=== PATIENT | female | born 1950 | race Caucasian/White ===

== ENCOUNTER → 2017-05-27 | Outpatient (CLI) | payer BC ==
[~2017-05-27] MED LIST: NAPR1TAB9 PO
--- NOTE | 2017-05-27 14:35 | MAMMOGRAPHY REPORT ---
BILATERAL DIGITAL SCREENING MAMMOGRAM WITH CAD: 05/27/2017 CLINICAL HISTORY: Routine screening. Patient has no complaints. TECHNIQUE: Current study was also evaluated with a Computer Aided Detection (CAD) system. Bilateral CC and MLO views were obtained. COMPARISON: Comparison is made to exams dated: 05/25/2016 mammogram, 05/21/2015 mammogram, 05/14/2014 mammogram, 05/12/2013 mammogram - [facility], 05/29/2008, and 03/01/2006 mammogram - [facility]. BREAST COMPOSITION: There are scattered areas of fibroglandular density in both breasts. FINDINGS: No suspicious masses, calcifications, or areas of architectural distortion are noted in ei ther breast. There has been no significant interval change compared to prior exams. IMPRESSION: ACR BI-RADS CATEGORY 1: NEGATIVE There is no mammographic evidence of malignancy. A 1 year screening mammogram is recommended. The pa tient will receive written notification of the results. Approximately 10% of breast cancers are not detected with mammography. A negative mammographic report should not delay biopsy if a clinically suggestive mass is present. Rosanna Workman M.D. /:05/27/2017 10:33:52 Water Ski Assembler: Zayra GAONA)(M), [facility] letter sent: Normal 1/2 BI-RADS Code: ACR BI-RADS Category 1: Negative
== END | disposition home or self-care (01) ==
LOC: C.MAMM 10:06
PROVIDERS: ATTEND Nurse Practitioner
DX: Z12.31 Encounter for screening mammogram for malignant neoplasm of breast (principal)

== ENCOUNTER 2024-01-19 21:28 | Inpatient (IN) ==
--- NOTE | 2024-01-19 22:21 | Emergency Department Note ---
Impression & Plan Generalized weakness, Elevated brain natriuretic peptide (BNP) level, Elevated troponin, Dysphagia ED Provider Note NAME: NICA HICKMANOOF AGE: 73 SEX: F : 1950 ARRIVES VIA: Walk-In INFORMANT: Patient, daughter ED PROVIDER(S): Frandy Leiva MD CHIEF COMPLAINT: Weakness, outpatient referral for admission, difficulty swallowing MEDICAL DECISION MAKING: Patient patient presents due to concern for weakness. IV was established and blood work was obtained.Patient currently denies any abdominal pains. Patient has a normal white count hemoglobin 9.8 with a normal platelet count. The patient's kidney function is unremarkable the prerenal azotemia noted. Patient does have slightly elevated troponin at 16.3 with a BNP of 188. Lung sounds are grossly unremarkable. I did speak with the on-call hospital service Dr. Shepherd and the patient was admitted to the medicine service. Discussion w/ other healthcare providers: Dr. Odonnell inpatient medicine service Prior /Outside records reviewed: None Differential diagnosis: Infection, dehydration, metabolic abnormality, hypo/hyperglycemia, electrolyte imbalance, anemia, UTI, pneumonia, thyroid dysfunction among others were considered. Diagnostics, as interpreted by me: ECG: Sinus bradycardia, rate 56, normal intervals, normal QRS, normal axis QT appears grossly normal although machine read is very low. Cardiac monitoring: An order was placed for continuous cardiac monitoring. The monitor shows a rate of 62 with sinus rhythm. Patient was placed on pulse oximetry Medical decision rules: None Imaging studies: I informally interpreted the patient's chest x-ray does not show evidence of pneumonia or pneumothorax with formal report to follow. HPI: Patient presents due to concern for increasing weakness and fatigue and is accompanied by her daughter. The patient was reportedly seen in the outpatient setting at [facility] was referred here for admission. Patient had been seen earlier in the week but wanted to go home at that time. Patient denies any chest pains or shortness of breath. No falls or trauma. The patient does have significant lower extremity lymphedema. Patient reportedly is lost about 70 pounds in the last 6 months. The patient was recently diagnosed with ulcerative colitis. The patient has not been able to take her mesalamine and that she has had increasingly a difficult time swallowing. The patient reportedly did have a swallow study completed which showed slow swallowing but no obstruction. They report that she did have an EGD and did not require dilatation at that time. PAST MEDICAL HISTORY: See Below PAST SURGICAL HISTORY: See Below SOCIAL HISTORY: See Below HOME MEDICATIONS: See Below ALLERGIES: See Below VITALS: See Below PHYSICAL EXAMINATION: GENERAL: NAD, non-toxic. EYE EXAM: Normal conjunctiva. PERRL, no anisocoria and EOM's grossly intact w/o pain. OROPHARYNX: Moist mucus membranes, grossly normal dentition. NECK: Trachea midline, no stridor. LUNGS: Clear to auscultation. Normal chest wall mechanics. HEART: NSR, no MRG. ABDOMEN: Abdomen soft, non-tender, no masses, no rebound or guarding. BACK: No CVA TTP. SKIN: No rashes and no bruising. UPPER EXTREMITIES: Upper extremities are grossly normal. LOWER EXTREMITIES: Bilateral lower extremity edema without pitting edema. NEURO EXAM: A&O x3, cranial nerves II-XII grossly intact, normal speech, moves all 4 extremities. Past Med/Surg History Problem List (Updated 01/22/24 @ 11:09 by Frandy Leiva MD) Generalized weakness (Acute) Cervical spondylosis Hypokalemia Dysphagia (Acute) Cellulitis of right lower extremity from knee to ankle Bilateral lower extremity edema Elevated troponin (Acute) Elevated brain natriuretic peptide (BNP) level (Acute) Lightheadedness (Acute) Low serum albumin (Acute) Renal insufficiency (Acute) Ulcerative colitis, chronic (Acute) Left knee DJD (Acute) Medical History No pertinent past medical history Surgical History H/O spinal fusion Social History Smoking Status: Never smoker Hx Alcohol Use: No Hx Substance Use: No Preferred Language: Kazakh Communication Ability: Effective Cooler Worker Required: No Beliefs That Will Affect Care: None Current Living Situation: Alone Feels Safe at Home: Yes Assistive Devices: Glasses Allergies Allergies Allergy/AdvReac Type Severity Reaction Status Date / Time amoxicillin AdvReac Intermediate BILATERAL Verified 01/17/24 21:53 LEG SWELLING & ITCHINESS codeine AdvReac Intermediate chest pain Verified 01/17/24 21:53 Home Meds Home Medications Medication Instructions Recorded Confirmed prednisone 10 mg tablet 40 mg PO DAILY 01/17/24 01/19/24 Results & Data (ED) Vital Signs Vital Signs - 24 hr 01/19/24 21:32 01/19/24 21:58 01/19/24 22:09 Temperature 36.6 C Temperature Source Temporal Artery Scan Pulse Rate 66 57 L Respiratory Rate 18 Blood Pressure 126/83 Blood Pressure Mean 97 Pulse Oximetry 96 98 Oxygen Delivery Method Room Air Room Air Sepsis Recent Fever Within 48 Hours No Sepsis New/Unexplained Change in Mental Status N/A Sepsis Action Taken by Nursing No Action Required Home Medications Current Medication List: was personally reviewed by me Laboratory Data Attestation: I reviewed the patient's lab results. 01/22/24 05:45 01/22/24 05:45 Lab Results 01/19/24 Range/Units 22:05 WBC 9.76 (4.8-10.8) K/ul RBC 3.44 L (4.20-5.40) M/uL Hgb 9.8 L (12.0-16.0) g/dl Hct 29.4 L (37.0-47.0) % MCV 85.5 (80.0-100.0) fL MCH 28.5 (25.0-34.0) pg MCHC 33.3 (32.0-36.0) g/dL RDW Std Deviation 48.0 H (36.4-46.3) fL RDW Coeff of Fer 15.9 H (11.5-14.5) % Plt Count 302 (130-400) K/uL MPV 9.1 L (9.4-12.4) fL Immature Gran % (Auto) 0.3 % Neut % (Auto) 85.6 % Lymph % (Auto) 9.6 % [place] % (Auto) 4.4 % Eos % (Auto) 0.0 % Baso % (Auto) 0.1 % Neut # (Auto) 8.35 H (1.40-6.50) K/uL Lymph # (Auto) 0.94 L (1.20-3.40) K/uL [place] # (Auto) 0.43 (0.11-0.59) K/uL Eos # (Auto) 0.00 (0.00-0.50) K/uL Baso # (Auto) 0.01 (0.00-0.20) K/uL Immature Gran # (Auto) 0.03 (0.01-0.20) K/uL Sodium 138 (136-145) mmol/L Potassium 3.3 L (3.5-5.1) mmol/L Chloride 103 (98-107) mmol/L Carbon Dioxide 28 (21-32) mmol/L Anion Gap 7 (3-11) BUN 41 H (6-23) mg/dl Creatinine 1.18 (0.6-1.2) mg/dl Est Cr Clr Drug Dosing 44.5 ml/min Est GFR ( Amer) 52.6 ml/min Est GFR (Non-Af Amer) 45.4 ml/min BUN/Creatinine Ratio 34.7 H (10-20) Glucose 129 H (70-99(Fasting)) mg/dl Calcium 9.5 (8.6-10.3) mg/dl Magnesium 2.1 (1.7-2.4) mg/dl Total Bilirubin 0.6 (0.2-1.0) mg/dl AST 14 (13-39) U/L ALT 11 (7-52) U/L Alkaline Phosphatase 51 (34-104) U/L Troponin I High Sens 16.3 H (0-14) pg/ml B-Natriuretic Peptide 188 H (0-100) pg/ml Total Protein 6.2 (6.0-8.3) gm/dl Albumin 3.1 L (3.4-5.0) gm/dl Globulin 3.1 (2.5-4.0) gm/dl Albumin/Globulin Ratio 1.0 (0.9-2) TSH 1.272 (0.300-4.500) uIu/ml Administered Medications Enoxaparin Sodium (Enoxaparin Inj 40 Mg/0.4 Ml Syr) 40 mg SQ QAM [facility] Stop: 02/20/24 08:59 Last Admin: 01/22/24 09:20 Dose: 40 mg Documented By: АНДРЕЙ Admin: 01/21/24 09:04 Dose: 40 mg Documented By: АНДРЕЙ Pantoprazole Sodium 40 mg/ (Syringe) 10 mls @ 5 mls/min IV DAILY@1100 [facility] Stop: 02/19/24 10:59 Last Admin: 01/21/24 11:19 Dose: 5 mls/min Documented By: АНДРЕЙ Admin: 01/20/24 10:51 Dose: 5 mls/min Documented By: ML Methylprednisolone 40 mg/ (Syringe) 0.64 mls @ 1.5 mls/min IV DAILY SUBHA Stop: 02/20/24 08:59 Last Admin: 01/22/24 09:20 Dose: 1.5 mls/min Documented By: АНДРЕЙ Admin: 01/21/24 09:06 Dose: 1.5 mls/min Documented By: АНДРЕЙ Lactase (Lactase 3000 Unit Tab) 3,000 units PO QIDM PRN PRN Reason: [email or web address] Stop: 02/20/24 15:34 Last Admin: 01/21/24 18:00 Dose: 3,000 units Documented By: АНДРЕЙ Discontinued Medications Potassium Chloride/Sodium Chloride (Normal Saline W/20 Meq Kcl) 20 meq in 1,000 mls @ 80 mls/hr IV .[id number] SUBHA; Protocol Stop: 01/21/24 04:38 Last Infusion: 01/21/24 01:00 Dose: Infused Documented By: Admin: 01/20/24 13:53 Dose: 100 mls/hr Documented By: LUIS ENRIQUE Infusion: 01/20/24 13:36 Dose: Infused Documented By: Admin: 01/20/24 02:48 Dose: 100 mls/hr Documented By: HB Albumin Human (Albumin 25%) 25 gm in 100 mls @ 50 mls/hr IV Q2H SUBHA Stop: 01/20/24 05:29 Last Infusion: 01/20/24 06:04 Dose: Infused Documented By: Admin: 01/20/24 03:31 Dose: 50 mls/hr Documented By: Infusion: 01/20/24 03:31 Dose: Infused Documented By: Admin: 01/20/24 01:53 Dose: 50 mls/hr Documented By: HB Cefepime HCl 2,000 mg/ Syringe 20 mls @ 5 mls/min IV Q12H SUBHA; Protocol Stop: 01/30/24 01:59 Last Admin: 01/20/24 13:53 Dose: 5 mls/min Documented By: LUIS ENRIQUE Admin: 01/20/24 02:23 Dose: 5 mls/min Documented By: HB Metronidazole (Flagyl) 500 mg in 100 mls @ 100 mls/hr IV Q8H SUBHA; Protocol Stop: 01/30/24 01:59 Last Infusion: 01/20/24 11:55 Dose: Infused Documented By: Admin: 01/20/24 10:54 Dose: 100 mls/hr Documented By: Infusion: 01/20/24 04:08 Dose: Infused Documented By: Admin: 01/20/24 02:49 Dose: 100 mls/hr Documented By: HB Daptomycin 275 mg/ Syringe 5.5 mls @ 2.75 mls/min IV Q24H SUBHA; Protocol Stop: 01/27/24 02:59 Last Admin: 01/20/24 02:23 Dose: 2.75 mls/min Documented By: HB Pantoprazole Sodium 40 mg/ (Syringe) 10 mls @ 5 mls/min IV NOW ONE Stop: 01/20/24 01:46 Last Admin: 01/20/24 02:22 Dose: 5 mls/min Documented By: HB Methylprednisolone 40 mg/ (Syringe) 0.64 mls @ 1.5 mls/min IV Q12H SUBHA Stop: 02/19/24 01:59 Last Admin: 01/20/24 13:53 Dose: 1.5 mls/min Documented By: LUIS ENRIQUE Admin: 01/20/24 02:23 Dose: 1.5 mls/min Documented By: HB Potassium Phosphate 15 mmol/ (Sodium Chloride) 255 mls @ 88 mls/hr IV ONE ONE Stop: 01/20/24 11:08 Last Infusion: 01/20/24 12:16 Dose: Infused Documented By: Admin: 01/20/24 09:09 Dose: 88 mls/hr Documented By: ML Potassium Phosphate 15 mmol/ (Sodium Chloride) 255 mls @ 88 mls/hr IV ONE ONE Stop: 01/21/24 11:23 Last Infusion: 01/21/24 12:58 Dose: Infused Documented By: АНДРЕЙ Admin: 01/21/24 09:04 Dose: 88 mls/hr Documented By: АНДРЕЙ Imaging Data Radiologist's Impression: Chest X-Ray 01/19/24 22:09 XR chest 1V portable HISTORY: weakness COMPARISON: Chest CTA 01/18/2024. FINDINGS: Emphysema. No pneumothorax. The lungs are clear. No evidence for pulmonary edema. The heart is normal in size. No acute fractures. Bilateral cervical ribs are suggested. IMPRESSION: Emphysema. Otherwise, no acute process within the chest. ACT 112: Negative or not required by law. Electronically signed by: William Zelaya M.D. 01/20/2024 7:26 AM Discharge Plan Visit Data Chief Complaint: Referred by Doctor Stated Complaint: LETHARGIC, FATIGUE ED Provider: Frandy Leiva Discharge Problem: Generalized weakness, Elevated brain natriuretic peptide (BNP) level, Elevated troponin, Dysphagia Patient Disposition: Admitted As Inpatient Discharge Instructions Interventions: ED Discharge Assessment Last Done: 01/20/24 07:26 Discharge Problem: Dysphagia Qualifiers: Dysphagia type: unspecified Qualified Code(s): R13.10 - Dysphagia, unspecified
[2024-01-19 22:31] LABS: Basophils # (auto) 0.01 K/uL (0.00-0.20); Basophils % (auto) 0.1 %; Hematocrit (blood only) 29.4 % (37.0-47.0); Hemoglobin 9.8 g/dl (12.0-16.0); Immature Granulocytes # (auto) 0.03 K/uL (0.01-0.20); Immature Granulocytes % (auto) 0.3 %; Lymphocytes # (auto) 0.94 K/uL (1.20-3.40); Lymphocytes % (auto) 9.6 %; Mean Corpuscular Hemoglobin 28.5 pg (25.0-34.0); Mean Corpuscular Hgb Conc 33.3 g/dL (32.0-36.0); Mean Corpuscular Volume 85.5 fL (80.0-100.0); Mean Platelet Volume 9.1 fL (9.4-12.4); Monocytes # (auto) 0.43 K/uL (0.11-0.59); Monocytes % (auto) 4.4 %; Neutrophils # (auto) 8.35 K/uL (1.40-6.50); Neutrophils % (auto) 85.6 %; Platelet Count 302 K/uL (130-400); RDW Coefficient of Variation 15.9 % (11.5-14.5); Red Blood Count 3.44 M/uL (4.20-5.40); White Blood Count 9.76 K/ul (4.8-10.8)
[2024-01-19 22:46] LABS: Albumin Level 3.1 gm/dl (3.4-5.0); BUN Creatinine Ratio 34.7 (10-20); Bilirubin,Total 0.6 mg/dl (0.2-1.0); Calcium 9.5 mg/dl (8.6-10.3); Creatinine Clr Calc Pharmacy 44.5 ml/min; Est GFR (African American) 52.6 ml/min; Est GFR (Non-African American) 45.4 ml/min; Globulin 3.1 gm/dl (2.5-4.0); Magnesium 2.1 mg/dl (1.7-2.4); Potassium 3.3 mmol/L (3.5-5.1); Total Protein 6.2 gm/dl (6.0-8.3)
[2024-01-19 23:01] LABS: Thyroid Stimulating Hormone 1.272 uIu/ml (0.300-4.500)
[2024-01-20] MEDS ORDERED: ONDANSETRON INJ 2 MG/ML 2 ML VIAL IV PRN (01:29)
[2024-01-20] MEDS ORDERED: methylPREDNISolone 10 mg/mL (For Ped Dose < 7mg) IV SCH (01:30)
--- NOTE | 2024-01-20 01:34 | History & Physical Report ---
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 EGD biopsies on 01/06/2024 were negative Hold prednisone 40 mg daily, which was to be tapered after her fourth day of dose today, Solu-Medrol 40 mg IV every 12 hours Colon Biopsies on 01/05 also suggest the possibility of infection versus medication related versus idiopathic inflammatory bowel disease Cover with antibiotics to address GI and skin issues Pantoprazole 40 mg IV daily Zofran 4 mg IV every 6 hours as needed Daptomycin 275 mg IV daily, Flagyl 500 mg IV every 8 hours, cefepime 2 g IV every 12 hours Bilateral lower extremity edema/right lower extremity cellulitis- Antibiotics as above Differential causes including but not limited to heart failure versus venous insufficiency versus lymphedema or combination Hold on diuretics for now due to recent kidney injury Albumin 3.1, will be given albumin 50 g IV Elevated troponin/elevated BNP- Laboratories from 01/17 with troponin of 14.7 and BNP 256 Troponin this evening 16.3 with BNP pending The patient will be admitted to telemetry for serial cardiac enzymes, serial EKG's, cardiac rhythm monitoring and a 2-D echocardiogram with Dopplers. EKG without acute findings, showing sinus bradycardia 56 with nonspecific IVCD Dysphagia- Patient unable to swallow pills as feels like things are getting stuck Outpatient GI was recommending swallowing study which will be ordered with speech therapy Pantoprazole 40 mg IV daily Renal insufficiency/hypokalemia- Creatinine tonight goes 1.37, with free improvement to 1.18 Potassium 3.3. Magnesium 2.1 NSS + KCl 20 mEq at 100 mL/h x 2 L Follow labs serially History of Present Illness Chief Complaint: The patient had initially presented to the emergency department on 01/17/2024 for symptoms of ongoing generalized weakness, poor appetite, lightheadedness over the past several days. She had undergone an EGD and colonoscopy on 01/06/2024, with the ED results being normal, however, the colonoscopy biopsy results were suggestive of ulcerative colitis. She had had a 40 pound weight loss over the previous year due to overall decreased oral intake as noted. She is presently on the fourth day of a prednisone 40 mg dose, which was planned to be tapered over the next few weeks. After having gone to her PCP earlier in the day today, it was noted that she had worsening lower extremity edema with weeping bilaterally, some erythema of right lower extremity, and had some borderline concerning laboratories at the previous ED visit, that need to be followed up on. Primary Care Provider: Prachi Cleveland DO The patient is a 73-year-old female with a past medical history including ulcerative colitis, left knee DJD and renal insufficiency, with elevated troponin and BNP, worsening lower extremity edema and weeping, with persistent symptoms of abdominal discomfort associated with chronic ulcerative colitis. She presents to the emergency department for reassessment this evening. She did receive Solu-Medrol 125 mg IV from the ED 2 nights ago, and reports some improvement in symptoms, in conjunction with the prednisone 40 mg orally she is taking at this time. However, she continues to have persistent and worsening lower extremity edema and weeping Allergies Allergy/AdvReac Type Severity Reaction Status Date / Time amoxicillin AdvReac Intermediate BILATERAL Verified 01/17/24 21:53 LEG SWELLING & ITCHINESS codeine AdvReac Intermediate chest pain Verified 01/17/24 21:53 Home Medications Medication Instructions Recorded Confirmed Type prednisone 10 mg tablet 40 mg PO DAILY 01/17/24 01/19/24 History Past Med/Surg History Problem List (Updated 01/20/24 @ 03:52 by Hernesto Huerta MD) Hypokalemia Dysphagia Cellulitis of right lower extremity from knee to ankle Bilateral lower extremity edema Elevated troponin Elevated brain natriuretic peptide (BNP) level (Acute) Lightheadedness (Acute) Low serum albumin (Acute) Renal insufficiency (Acute) Ulcerative colitis, chronic (Acute) Left knee DJD (Acute) Medical History No pertinent past medical history Surgical History H/O spinal fusion Social History Smoking Status: Never smoker Hx Alcohol Use: No Hx Substance Use: No Preferred Language: Mongolian Communication Ability: Effective Tapper Hand Required: No Beliefs That Will Affect Care: None Current Living Situation: Alone Feels Safe at Home: Yes Assistive Devices: Glasses Review of Systems Review of Systems: The patient denies chest pain, palpitations, shortness of breath, dyspnea on exertion, cough, sore throat, fevers, chills, sweats, nausea, vomiting, blood in urine or stool, dysuria, urinary frequency or urgency, lightheadedness, dizziness, headache, memory loss, loss of consciousness, imbalance, focal weakness, numbness or tingling in arms, generalized arthralgias or myalgias, back or neck pain, or night sweats. The review of systems is otherwise negative other than for that already noted above, and at least 10 systems have been reviewed. Physical Exam Physical Exam: The patient is awake, alert and oriented 3, well developed and well nourished, normocephalic and atraumatic, lying in bed and in no acute distress. HEENT--PERRL, EOMI, mucous membranes and oropharynx normal Neck--supple. No JVD. No bruits. Thyroid normal, trachea midline, no adenopathy. Heart--normal S1 and S2. No murmurs, rubs or gallops. Lungs--clear bilaterally, no respiratory distress, no accessory muscle use. Abdomen--normal bowel sounds and soft. Nontender. Nondistended Extremities--2+ bilateral pretibial pitting edema, some vacuolization, mild erythema anterior tibial surface and nodule of right leg Dermatologic--normal skin turgor, normal color, no abnormal lymph nodes, no rash. Neurologic--cranial nerves II through XII grossly intact. Rheumatologic--normal range of motion. Psychiatric--normal affect. Results & Data Results & Data Vital Signs (Past 12 Hours) Vital Signs Temp Pulse Resp BP Pulse Ox O2 Del Method 01/19/24 22:09 98 Room Air 01/19/24 21:58 57 L 01/19/24 21:32 36.6 C 66 18 126/83 96 Room Air Laboratory Results Laboratory Results WBC 9.76 K/ul (4.8-10.8) 01/19/24 22:05 RBC 3.44 M/uL (4.20-5.40) L 01/19/24 22:05 Hgb 9.8 g/dl (12.0-16.0) L 01/19/24 22:05 Hct 29.4 % (37.0-47.0) L 01/19/24 22:05 MCV 85.5 fL (80.0-100.0) 01/19/24 22:05 MCH 28.5 pg (25.0-34.0) 01/19/24 22:05 MCHC 33.3 g/dL (32.0-36.0) 01/19/24 22:05 RDW Std Deviation 48.0 fL (36.4-46.3) H 01/19/24 22:05 RDW Coeff of Fer 15.9 % (11.5-14.5) H 01/19/24 22:05 Plt Count 302 K/uL (130-400) 01/19/24 22:05 MPV 9.1 fL (9.4-12.4) L 01/19/24 22:05 Immature Gran % (Auto) 0.3 % 01/19/24 22:05 Neut % (Auto) 85.6 % 01/19/24 22:05 Lymph % (Auto) 9.6 % 01/19/24 22:05 [place] % (Auto) 4.4 % 01/19/24 22:05 Eos % (Auto) 0.0 % 01/19/24 22:05 Baso % (Auto) 0.1 % 01/19/24 22:05 Neut # (Auto) 8.35 K/uL (1.40-6.50) H 01/19/24 22:05 Lymph # (Auto) 0.94 K/uL (1.20-3.40) L 01/19/24 22:05 [place] # (Auto) 0.43 K/uL (0.11-0.59) 01/19/24 22:05 Eos # (Auto) 0.00 K/uL (0.00-0.50) 01/19/24 22:05 Baso # (Auto) 0.01 K/uL (0.00-0.20) 01/19/24 22:05 Immature Gran # (Auto) 0.03 K/uL (0.01-0.20) 01/19/24 22:05 Sodium 138 mmol/L (136-145) 01/19/24 22:05 Potassium 3.3 mmol/L (3.5-5.1) L 01/19/24 22:05 Chloride 103 mmol/L (98-107) 01/19/24 22:05 Carbon Dioxide 28 mmol/L (21-32) 01/19/24 22:05 Anion Gap 7 (3-11) 01/19/24 22:05 BUN 41 mg/dl (6-23) H 01/19/24 22:05 Creatinine 1.18 mg/dl (0.6-1.2) 01/19/24 22:05 Est Cr Clr Drug Dosing 44.5 ml/min 01/19/24 22:05 Est GFR ( Amer) 52.6 ml/min 01/19/24 22:05 Est GFR (Non-Af Amer) 45.4 ml/min 01/19/24 22:05 BUN/Creatinine Ratio 34.7 (10-20) H 01/19/24 22:05 Glucose 129 mg/dl (70-99(Fasting)) H 01/19/24 22:05 Calcium 9.5 mg/dl (8.6-10.3) 01/19/24 22:05 Magnesium 2.1 mg/dl (1.7-2.4) 01/19/24 22:05 Total Bilirubin 0.6 mg/dl (0.2-1.0) 01/19/24 22:05 AST 14 U/L (13-39) 01/19/24 22:05 ALT 11 U/L (7-52) 01/19/24 22:05 Alkaline Phosphatase 51 U/L (34-104) 01/19/24 22:05 Troponin I High Sens 16.3 pg/ml (0-14) H 01/19/24 22:05 Total Protein 6.2 gm/dl (6.0-8.3) 01/19/24 22:05 Albumin 3.1 gm/dl (3.4-5.0) L 01/19/24 22:05 Globulin 3.1 gm/dl (2.5-4.0) 01/19/24 22:05 Albumin/Globulin Ratio 1.0 (0.9-2) 01/19/24 22:05 TSH 1.272 uIu/ml (0.300-4.500) 01/19/24 22:05 Code Status & VTE Plan Code Status Full code VTE Prophylaxis Plan VTE Prophylaxis will be ordered: Yes PG Care Time/CCT Total # of Minutes Spent Total Time Spent with Patient: Total time spent is greater than 50% in coordination of care (as documented) at patient's floor/unit and/or counseling patient: Coding Level of Care Code 52408 INT INP/OBS CARE 3/75MIN Diagnoses Elevated brain natriuretic peptide (BNP) level R79.89 Elevated troponin R79.89 Low serum albumin R77.0 Ulcerative colitis, chronic K51.019 Digestive disease complication type: unspecified complication Ulcerative colitis location: ulcerative pancolitis Renal insufficiency N28.9 Bilateral lower extremity edema R60.0 Cellulitis of right lower extremity from knee to ankle L03.115 Dysphagia R13.10 Hypokalemia E87.6 (4) Ulcerative colitis, chronic Digestive disease complication type: unspecified complication Ulcerative colitis location: ulcerative pancolitis Qualified Code(s): K51.019 - Ulcerative (chronic) pancolitis with unspecified complications
[2024-01-20] MEDS: ALBUMIN 25% 25 GM/100 ML VIAL IV SCH (01:53)
[2024-01-20 02:20] LABS: Troponin I High Sensitivity 16.3 pg/ml (0-14)
[2024-01-20] MEDS: PANTOprazole 40 MG in SYRINGE 0 ML IV ONE (02:22)
[2024-01-20] MEDS: methylPREDNISolone 40 MG in SYRINGE 0 ML IV SCH (02:23)
[2024-01-20] MEDS: DAPTOmycin 275 MG in SYRINGE 0 ML IV SCH (02:23)
[2024-01-20] MEDS: CEFEPIME 2,000 MG in SYRINGE 0 ML IV SCH (02:23)
[2024-01-20] MEDS: NSS + 20MEQ KCL 20 MEQ/1,000 ML BAG IV SCH (02:48)
[2024-01-20] MEDS: metroNIDAZOLE 500 MG/100 ML BAG IV SCH (02:49)
[2024-01-20 04:09] LABS: Appearance Urine Clear (Clear); Bacteria Urine Automated None Seen (None Seen); Bilirubin Urine Negative (Negative); Blood Urine Negative (Negative); Color Urine Yellow; Glucose Urine UA Trace (Negative); Hyaline Casts Urine Present /lpf (None Presnt); Ketones Urine 1+ (Negative); Leukocyte Esterase Urine Negative (Negative); Nitrite Urine Negative (Negative); Protein Urine 1+ (Negative); RBC Urine Automated 0-2 /hpf (0-2); Specific Gravity Urine 1.037 (1.000-1.030); Urobilinogen Urine Negative (Negative); WBC Urine Automated 0-5 /hpf (0-5)
[2024-01-20 04:56] LABS: Basophils # (auto) 0.01 K/uL (0.00-0.20); Basophils % (auto) 0.1 %; Hematocrit (blood only) 26.8 % (37.0-47.0); Hemoglobin 8.6 g/dl (12.0-16.0); Immature Granulocytes # (auto) 0.04 K/uL (0.01-0.20); Immature Granulocytes % (auto) 0.5 %; Lymphocytes # (auto) 0.78 K/uL (1.20-3.40); Lymphocytes % (auto) 10.2 %; Mean Corpuscular Hemoglobin 27.9 pg (25.0-34.0); Mean Corpuscular Hgb Conc 32.1 g/dL (32.0-36.0); Mean Platelet Volume 8.8 fL (9.4-12.4); Monocytes # (auto) 0.37 K/uL (0.11-0.59); Monocytes % (auto) 4.9 %; Neutrophils # (auto) 6.42 K/uL (1.40-6.50); Neutrophils % (auto) 84.3 %; Platelet Count 213 K/uL (130-400); RDW Coefficient of Variation 15.8 % (11.5-14.5); RDW Standard Deviation 49.4 fL (36.4-46.3); Red Blood Count 3.08 M/uL (4.20-5.40); White Blood Count 7.62 K/ul (4.8-10.8)
[2024-01-20 05:09] LABS: Albumin Level 3.2 gm/dl (3.4-5.0); Creatinine Clr Calc Pharmacy 52.5 ml/min; Est GFR (African American) 64.3 ml/min; Est GFR (Non-African American) 55.5 ml/min; Phosphorus 2.1 mg/dl (2.5-4.9); Potassium 3.4 mmol/L (3.5-5.1)
[2024-01-20 05:15] LABS: Troponin I High Sensitivity 16.4 pg/ml (0-14)
--- NOTE | 2024-01-20 07:27 | XRay Report ---
XR chest 1V portable HISTORY: weakness COMPARISON: Chest CTA 01/18/2024. FINDINGS: Emphysema. No pneumothorax. The lungs are clear. No evidence for pulmonary edema. The heart is normal in size. No acute fractures. Bilateral cervical ribs are suggested. IMPRESSION: Emphysema. Otherwise, no acute process within the chest. ACT 112: Negative or not required by law. Electronically signed by: William Zelaya M.D. 01/20/2024 7:26 AM
[2024-01-20] MEDS ORDERED: POTASSIUM PHOS 3 MMOL/1 ML INFUSION IV STA (08:01)
[2024-01-20] MEDS: POTASSIUM PHOSPHATE 15 MMOL in SODIUM CHLORIDE 0.9% 250 ML IV ONE (09:09)
[2024-01-20] MEDS: PANTOprazole 40 MG in SYRINGE 0 ML IV SCH (10:51)
--- NOTE | 2024-01-20 14:56 | XCELERA ---
[id number] [id number]
--- NOTE | 2024-01-20 16:36 | Hospitalist Progress Note ---
Date of Service January 20, 2024 Assessment & Plan (1) Elevated brain natriuretic peptide (BNP) level: (2) Elevated troponin: (3) Low serum albumin: (4) Ulcerative colitis, chronic: (5) Renal insufficiency: (6) Bilateral lower extremity edema: (7) Cellulitis of right lower extremity from knee to ankle: (8) Dysphagia: (9) Hypokalemia: Plan Unspecified Colitis: Primarily noted to be active left side and sigmoid colon on CT scan abdomen and pelvis on 01/16 Colon biopsy during colonoscopy from 01/06/2024 with right and left side biopsies suggestive of cryptitis with increased numbers of lymphoplasmacytic cells in the lamina propria History and scope findings do not appear consistent with traditional UC, colon biopsies on 01/05 also suggest the possibility of infection versus medication related versus idiopathic inflammatory bowel disease Decrease Solumedrol to 40mg IV daily. Bilateral lower extremity edema More suggestive of venous stasis vs lymphedema, no fever, no white count, non- tender to palpation - will dc abx Dysphagia- Patient struggles to swallow pills/food as feels like things are getting stuck EGD biopsies on 01/06/2024 were negative Barium swallow/VFSS planned to tomorrow AM - NPO at midnight Pantoprazole 40 mg IV daily Renal insufficiency Creatinine 1.37 on admission, AM Cr 1 NSS + KCl 20 mEq at 80 mL/h x 2.5 L Follow labs serially Diet: Full liquid, NPO at midnight VTE ppx: Lovenox Admission and Anticipated Discharge Date Admission Date: January 20, 2024 Supervising Physician Co-Signing Physician Notes I personally examined the patient and verified all garcia points of history and exam, discussed case, and agree with decision making with Dr Dugan Feels a lot of dysphagia and food sticking in her throat. Also feels a lot of vague abdominal malaise and sometimes has slimy diarrhea. Has had endoscopic workup as an outpatient at [facility].legs also more swollen and heavier, generally getting weaker vitals noted nad heent nc at mmm breathing unlabored no accessory muscles good effort skin no rashes no pallor or icterus. b/l LE edema and diffuse venous stasis changes no erythema no exquisite tenderness b/l LE venous stasis changes - no evidence cellulitis after further review, stop abx, follow weight loss, dysphagia, lower GI malaise and ?UC - on steroids per outpt GI. will need to get more extensive records and/or discuss current working dx/plan/next steps. dysphagia - same; also for barium swallow tomorrow. fiscal agent consult. weakness - from malnutrition (seems to be acute severe protein calorie malnutrition based on weight loss) - PT/OT, fiscal agent consult DVT proph - lovenox Subjective Patient states that she presented to ED at recommendation from her PCP, who noted more pronounced bilateral LE swelling with associated weeping from left leg. Increased LE swelling over the past week, not painful, denies associated fever/chills. Apart from this, patient was seen 2 days prior due to generalized fatigue/weakness in the setting of 70 lb weight loss. Weight loss over past year has been due to dysphagia, patient had recent EGD that was negative. Recent colonoscopy which identified a non-specific colitis, possibly infectious vs medication-related vs idiopathic IBD. Severe diarrhea for a period of time last year, though this was during a bout of diverticulitis. Since, has on and off diarrhea, non-bloody. Denies CP, SOB, abdominal pain. Review of Systems Review of Systems: as per HPI Physical Exam Physical Exam: General: Alert and oriented. No acute distress Cardiac: Regular rate and rhythm, no murmurs appreciated Respiratory: Lungs clear to auscultation bilaterally, No increased work of breathing Abdominal: Soft, non-tender, non-distended. Bowel sounds present. Extremities: Significant bilateral LE pitting edema from the knees down, mild venous stasis changes appreciated on anterior aspect of right owens. Non-tender to palpation, not warm to touch. Results & Data Results & Data Vital Signs (Past 12 Hours) Vital Signs Temp Pulse Pulse Resp BP BP Pulse Ox 01/20/24 14:30 01/20/24 14:02 48 L 01/20/24 14:00 36.7 C 59 L 16 114/78 95 01/20/24 13:00 52 L 18 97 01/20/24 12:53 124/62 01/20/24 12:53 124/62 01/20/24 12:42 40 L 12 01/20/24 12:06 50 L 14 01/20/24 11:15 43 L 13 01/20/24 11:00 121/68 01/20/24 10:57 49 L 14 01/20/24 10:50 120/60 01/20/24 10:50 120/60 01/20/24 10:50 120/60 01/20/24 10:50 47 L 15 120/60 98 01/20/24 10:33 12 01/20/24 10:09 40 L 13 01/20/24 10:00 131/68 01/20/24 10:00 131/68 01/20/24 09:24 51 L 12 01/20/24 09:10 127/64 01/20/24 09:10 127/64 01/20/24 09:10 127/64 01/20/24 09:09 46 L 11 L 01/20/24 09:09 61 19 127/64 97 01/20/24 08:00 42 L 12 01/20/24 07:47 44 L 01/20/24 07:23 47 L 18 131/68 97 01/20/24 07:23 01/20/24 07:22 131/68 01/20/24 07:22 131/68 01/20/24 07:21 44 L 14 01/20/24 07:00 43 L 11 L 01/20/24 06:36 46 L 12 01/20/24 06:00 45 L 14 103/64 Pulse Ox O2 Del Method O2 Del Method 01/20/24 14:30 Room Air 01/20/24 14:02 01/20/24 14:00 Room Air 01/20/24 13:00 01/20/24 12:53 01/20/24 12:53 01/20/24 12:42 01/20/24 12:06 01/20/24 11:15 01/20/24 11:00 01/20/24 10:57 01/20/24 10:50 01/20/24 10:50 01/20/24 10:50 01/20/24 10:50 Room Air 01/20/24 10:33 01/20/24 10:09 01/20/24 10:00 01/20/24 10:00 01/20/24 09:24 01/20/24 09:10 01/20/24 09:10 01/20/24 09:10 01/20/24 09:09 01/20/24 09:09 Room Air 01/20/24 08:00 01/20/24 07:47 01/20/24 07:23 Room Air 01/20/24 07:23 97 Room Air 01/20/24 07:22 01/20/24 07:22 01/20/24 07:21 01/20/24 07:00 01/20/24 06:36 01/20/24 06:00 Resident Activity Tracking Resident Involvement: Resident Care Provided Care Provided: Adult Hospital Medicine (4) Ulcerative colitis, chronic Digestive disease complication type: unspecified complication Ulcerative colitis location: ulcerative pancolitis Qualified Code(s): K51.019 - Ulcerative (chronic) pancolitis with unspecified complications
--- NOTE | 2024-01-20 18:11 | Billing Data ---
Date of Service January 20, 2024 Coding Level of Care Code 76794 SUB INP/OBS CARE MIN
[2024-01-21 06:24] LABS: Hematocrit (blood only) 25.7 % (37.0-47.0); Hemoglobin 8.5 g/dl (12.0-16.0); Immature Granulocytes # (auto) 0.05 K/uL (0.01-0.20); Immature Granulocytes % (auto) 0.5 %; Lymphocytes # (auto) 1.18 K/uL (1.20-3.40); Mean Corpuscular Hemoglobin 28.4 pg (25.0-34.0); Mean Corpuscular Hgb Conc 33.1 g/dL (32.0-36.0); Mean Platelet Volume 9.4 fL (9.4-12.4); Monocytes # (auto) 0.58 K/uL (0.11-0.59); Monocytes % (auto) 5.9 %; Neutrophils % (auto) 81.6 %; Platelet Count 215 K/uL (130-400); RDW Standard Deviation 49.7 fL (36.4-46.3); Red Blood Count 2.99 M/uL (4.20-5.40); White Blood Count 9.81 K/ul (4.8-10.8)
[2024-01-21 06:46] LABS: Albumin Level 2.8 gm/dl (3.4-5.0); BUN Creatinine Ratio 33.3 (10-20); Calcium 8.3 mg/dl (8.6-10.3); Creatinine Clr Calc Pharmacy 67.3 ml/min; Est GFR (African American) 86.8 ml/min; Est GFR (Non-African American) 74.9 ml/min; Magnesium 1.8 mg/dl (1.7-2.4); Phosphorus 2.2 mg/dl (2.5-4.9); Potassium 3.7 mmol/L (3.5-5.1)
--- NOTE | 2024-01-21 06:58 | Hospitalist Progress Note ---
Date of Service January 21, 2024 Assessment & Plan (1) Dysphagia: (2) Elevated brain natriuretic peptide (BNP) level: (3) Elevated troponin: (4) Low serum albumin: (5) Ulcerative colitis, chronic: (6) Renal insufficiency: (7) Bilateral lower extremity edema: (8) Cellulitis of right lower extremity from knee to ankle: (9) Hypokalemia: Plan Unspecified Colitis: Primarily noted to be active left side and sigmoid colon on CT scan abdomen and pelvis on 01/16 Colon biopsy during colonoscopy from 01/06/2024 with right and left side biopsies suggestive of cryptitis with increased numbers of lymphoplasmacytic cells in the lamina propria History and scope findings do not appear consistent with traditional UC, colon biopsies on 01/05 also suggest the possibility of infection versus medication related versus idiopathic inflammatory bowel disease Continue Solumedrol 40mg IV daily. Bilateral lower extremity edema More suggestive of venous stasis vs lymphedema, no fever, no white count elevation, non-tender to palpation Dysphagia, Failure to thrive/Protein calorie malnutrition, Generalized weakness: Patient struggles to swallow pills/food as it feels like things are getting stuck - difficulty has manifested as a 70 lb weight loss EGD biopsies on 01/06/2024 were negative Barium swallow/VFSS significant for cervical spine osteophyte growth noted to impeded swallowing - Speech therapy following, appreciate recs - Ortho spine consulted, Dr. Curiel agreeable to meeting with patient 01/21 Pantoprazole 40 mg IV daily Dietary consult, appreciate recs PT/OT Anemia: Hgb 9.8 at time of admission, AM Hgb 8.5 - acute change likely due to hemodilution Ferritin, B12, folate all WNL Renal insufficiency Creatinine 1.37 on admission, AM Cr 0.78 Follow labs Diet: Full liquid VTE ppx: Lovenox Admission and Anticipated Discharge Date Admission Date: January 20, 2024 Supervising Physician Co-Signing Physician Notes Patient seen and examined, chart reviewed, case discussed with Dr. Dugan and I agree with the assessment and plan as above except as otherwise noted Labs and images reviewed Pooja is a 73-year-old female who presents with dysphagia and was also found to have left-sided colitis suspicious for atypical UC versus infectious/medication related inflammatory bowel disease. She has been having significant challenges with dysphagia for several months despite normal EGD and biopsies last 01/05. Barium swallow/VFSS shows evidence of cervical osteophyte obstruction causing dysphagia and aspiration. Speech to meet with patient for dietary modifications to minimize risk of aspiration patient is aware that this risk cannot be completely eliminated Reviewed potential for surgical intervention versus symptomatic and anticipatory management. As She feels relatively healthy otherwise and has been extremely symptomatic with severe weight loss from this she would like to have a consultation to review surgical options. Case reviewed with orthospine who will see the patient 01/21 and likely follow-up for full surgical evaluation as outpatient. Will continue boost to maximize nutrition. Phosphate repleted. Agree with above. Patient is pleasant and nondistressed at bedside visit. Lungs are clear and she does not have any signs of aspiration pneumonia at time of visit. Subjective No acute overnight events, patient notes having 2 loose bowel movements this morning, denies seeing blood in stool. Poor appetite, did not eat much yesterday. Denies CP, SOB, abdominal pain. Scheduled for barium swallow/VFSS - on review of findings, patient notes that she is at least open to the idea of surgical intervention, would like to meet with ortho spine if possible. Review of Systems Review of Systems: as per HPI Physical Exam Physical Exam: General: Alert and oriented. No acute distress Cardiac: Regular rate and rhythm, no murmurs appreciated Respiratory: Lungs clear to auscultation bilaterally, No increased work of breathing Abdominal: Soft, non-tender, non-distended. Bowel sounds present. Extremities: Significant bilateral LE pitting edema from the knees down, mild venous stasis changes appreciated on anterior aspect of right owens. Non-tender to palpation, not warm to touch. Results & Data Results & Data Vital Signs (Past 12 Hours) Vital Signs Temp Pulse Pulse Resp BP Pulse Ox O2 Del Method 01/21/24 02:30 36.5 C 62 16 131/72 94 Room Air 01/20/24 22:46 36.4 C L 47 L 18 111/63 98 Room Air 01/20/24 22:30 79 01/20/24 22:08 38 L 01/20/24 19:04 36.4 C L 43 L 18 146/74 H 99 Room Air (5) Ulcerative colitis, chronic Digestive disease complication type: unspecified complication Ulcerative colitis location: ulcerative pancolitis Qualified Code(s): K51.019 - Ulcerative (chronic) pancolitis with unspecified complications
[2024-01-21] MEDS ORDERED: POTASSIUM PHOS 3 MMOL/1 ML INFUSION IV STA (07:59)
[2024-01-21] MEDS: POTASSIUM PHOSPHATE 15 MMOL in SODIUM CHLORIDE 0.9% 250 ML IV ONE (09:04)
[2024-01-21] MEDS: ENOXAPARIN INJ 40 MG/0.4 ML SYR SQ SCH (09:04)
[2024-01-21] MEDS: methylPREDNISolone 40 MG in SYRINGE 0 ML IV SCH (09:06)
--- NOTE | 2024-01-21 11:28 | Fluoroscopy Report ---
FL video swallow CLINICAL HISTORY: solid food dysphagia TECHNIQUE: Video fluoroscopy of the pharyngeal region was performed as barium mixtures of varying con sistencies were administered to the patient by the speech pathologist. A formal esophagram was not pe rformed. Comparison: Comparison is made to barium swallow 01/21/2024 FINDINGS: Total fluoroscopy time: 1.55 minutes. Radiation dose: 7.09 mGy. Penetration is seen. Epiglottic inversion is limited by posterior osteophyte. Pooling of barium was n oted in the bilateral piriform sinuses and valleculae. IMPRESSION: Penetration is seen without evidence of aspiration during the medial portion of this exam. Please see the speech pathology report for further details. ACT 112: Negative or not required by law. Electronically signed by: Fidel Vilchis M.D. 01/21/2024 11:26 AM
--- NOTE | 2024-01-21 11:31 | Fluoroscopy Report ---
FL barium swallow CLINICAL HISTORY: globus sensation TECHNIQUE: The patient was observed drinking thick and thin barium under fluoroscopic observation in both the upright and recumbent positions. Total fluoroscopy time: 20 seconds Ka,r: 11.2 mGy COMPARISON: Comparison is made to CTA chest 01/18/2024 FINDINGS: The patient had no problem initiating the swallowing mechanism. Aspiration is seen with cough. Exam w as terminated early. Dysmotility was seen during swallowing. There was no evidence of strictures, filling defects, or outpouchings. Contrast flowed readily from t he esophagus into the stomach. No hiatal hernia is seen. There was no evidence of gastroesophageal re flux. IMPRESSION: Limited exam due to aspiration. Dysmotility is seen. ACT 112: Negative or not required by law. Electronically signed by: Fidel Vilchis M.D. 01/21/2024 11:30 AM
[2024-01-21 12:50] LABS: Ferritin 180.2 ng/ml (8-388)
[2024-01-21 13:04] LABS: Folate (Folic Acid),Ser orPlas 6.01 ng/ml (>5.38)
--- NOTE | 2024-01-21 14:03 | Billing Data ---
Date of Service January 21, 2024 Coding Level of Care Code 26781 INT INP/OBS CARE
[2024-01-21] MEDS: LACTASE 3000 UNIT TAB PO PRN (18:00)
--- NOTE | 2024-01-21 18:44 | Electrocardiogram Report ---
Test Reason : Blood Pressure : / mmHG Vent. Rate : 056 BPM Atrial Rate : 056 BPM P-R Int : 114 ms QRS Dur : 162 ms QT Int : 114 ms P-R-T Axes : 003 061 049 degrees QTc Int : 110 ms Sinus bradycardia Non-specific intra-ventricular conduction delay Minimal voltage criteria for LVH, may be normal variant ( Kevin product ) Abnormal ECG When compared with ECG of 17-JAN-2024 20:08, Sinus rhythm has replaced Ectopic atrial rhythm Confirmed by Abraham Romero ([id number]) on 01/21/2024 6:43:59 PM Referred By: Prachi Cleveland Confirmed By:Abraham Romero
[2024-01-22 06:03] LABS: Basophils # (auto) 0.01 K/uL (0.00-0.20); Basophils % (auto) 0.1 %; Eosinophils # (auto) 0.01 K/uL (0.00-0.50); Eosinophils % (auto) 0.1 %; Hematocrit (blood only) 26.5 % (37.0-47.0); Hemoglobin 8.7 g/dl (12.0-16.0); Immature Granulocytes # (auto) 0.05 K/uL (0.01-0.20); Immature Granulocytes % (auto) 0.6 %; Lymphocytes # (auto) 1.63 K/uL (1.20-3.40); Mean Corpuscular Hemoglobin 28.2 pg (25.0-34.0); Mean Corpuscular Hgb Conc 32.8 g/dL (32.0-36.0); Mean Platelet Volume 9.4 fL (9.4-12.4); Monocytes # (auto) 0.53 K/uL (0.11-0.59); Monocytes % (auto) 5.9 %; Neutrophils # (auto) 6.81 K/uL (1.40-6.50); Neutrophils % (auto) 75.3 %; Platelet Count 185 K/uL (130-400); RDW Coefficient of Variation 16.2 % (11.5-14.5); RDW Standard Deviation 50.2 fL (36.4-46.3); Red Blood Count 3.08 M/uL (4.20-5.40); White Blood Count 9.04 K/ul (4.8-10.8)
[2024-01-22 06:22] LABS: Albumin Level 2.7 gm/dl (3.4-5.0); BUN Creatinine Ratio 26.7 (10-20); Calcium 8.1 mg/dl (8.6-10.3); Creatinine Clr Calc Pharmacy 69.8 ml/min; Est GFR (Non-African American) 78.5 ml/min; Phosphorus 1.7 mg/dl (2.5-4.9); Potassium 3.6 mmol/L (3.5-5.1)
--- NOTE | 2024-01-22 06:52 | Hospitalist Progress Note ---
Date of Service January 22, 2024 Assessment & Plan (1) Dysphagia: (2) Elevated brain natriuretic peptide (BNP) level: (3) Elevated troponin: (4) Low serum albumin: (5) Ulcerative colitis, chronic: (6) Renal insufficiency: (7) Bilateral lower extremity edema: (8) Cellulitis of right lower extremity from knee to ankle: (9) Hypokalemia: Plan 1) Unspecified Colitis: Primarily noted to be active left side and sigmoid colon on CT scan abdomen and pelvis on 01/16 Colon biopsy during colonoscopy from 01/06/2024 with 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 medication related vs. idiopathic inflammatory bowel disease Continue Solumedrol 40mg IV daily. 2) Bilateral lower extremity edema Highly suggestive of venous stasis vs lymphedema, - no fever, no white count elevation, non-tender to palpation 3) Dysphagia, Failure to thrive/Protein calorie malnutrition, Generalized weakness: Patient struggles to swallow pills/food as it feels like things are getting stuck - difficulty has manifested as a 70 lb weight loss EGD biopsies on 01/06/2024 were negative Barium swallow/VFSS significant for cervical spine osteophyte growth noted to impeded swallowing - Speech therapy following, appreciate recs - Ortho spine consulted, Dr. Curiel agreeable to meeting with patient 01/21 Pantoprazole 40 mg IV daily Dietary consult, appreciate recs PT/OT 4) Anemia: Hgb, 8.7 <-- 11.3 (at time of admission) - acute change w/in hospital due to hemodilution vs. bleed - Ferritin, B12, folate all WNL 5) Renal insufficiency Creatinine, 0.75 <-- 1.37 (on admission) Trend BMP's daily in AM Diet: Full liquid VTE ppx: Lovenox Admission and Anticipated Discharge Date Admission Date: January 20, 2024 Subjective No acute overnight events, patient notes having 2 loose bowel movements this morning, denies seeing blood in stool. Poor appetite, did not eat much yesterday, secondary to swallowing problems and food tasting strange. Denies CP, SOB, only mild abdominal pain. Pt noticed weeping wound on left owens this morn ing. Scheduled for barium swallow/VFSS - on review of findings, patient notes that she is at least open to the idea of surgical intervention, would like to meet with ortho spine if possible. Results & Data Results & Data Vital Signs (Past 12 Hours) Vital Signs Temp Pulse Pulse Resp BP Pulse Ox O2 Del Method 01/22/24 05:35 36.5 C 67 15 128/74 98 Room Air 01/22/24 00:00 47 L 01/21/24 23:25 36.7 C 52 L 19 128/75 96 Room Air 01/21/24 19:56 36.5 C 45 L 18 111/66 98 Room Air Resident Activity Tracking Resident Involvement: Resident Care Provided Care Provided: Adult Hospital Medicine (5) Ulcerative colitis, chronic Digestive disease complication type: unspecified complication Ulcerative colitis location: ulcerative pancolitis Qualified Code(s): K51.019 - Ulcerative (chronic) pancolitis with unspecified complications
--- NOTE | 2024-01-22 10:34 | Orthopedic Consultation ---
Date of Consultation January 22, 2024 Assessment & Plan (1) Cervical spondylosis: Assessment cervical spondylosis. Plan at this time a discussion today with the patient regarding her swallowing studies and possible treatment options which could include removal of the C3-C4 spurring. Will have her obtain a CAT scan of the cervical spine for preoperative planning. I will evaluate her in the office in the next few weeks and discuss whether we should pursue surgery or continued observation. Patient stands agrees with this plan. History of Present Illness Reason for Consultation: Swallowing issues Requesting Physician: Is a very pleasant 73-year-old female that is describing history of several months of difficulty swallowing. She is undergone extensive testing and screwed including video swallowing studies. There is concern that the osteophytes between C3 and C3-4 are inhibiting her mechanism. I discussed this with the patient. She currently denies any cervicalgia or arm symptoms. Attending Physician: Vamshi De Anda MD Allergies Allergy/AdvReac Type Severity Reaction Status Date / Time amoxicillin AdvReac Intermediate BILATERAL Verified 01/17/24 21:53 LEG SWELLING & ITCHINESS codeine AdvReac Intermediate chest pain Verified 01/17/24 21:53 Home Medications Medication Instructions Recorded Confirmed Type prednisone 10 mg tablet 40 mg PO DAILY 01/17/24 01/19/24 History Patient History Medical History No pertinent past medical history Surgical History H/O spinal fusion Social History Smoking Status: Never smoker Hx Alcohol Use: No Hx Substance Use: No Preferred Language: Maltese Communication Ability: Effective Well Testing Operator Required: No Beliefs That Will Affect Care: None Current Living Situation: Alone Feels Safe at Home: Yes Assistive Devices: Glasses Physical Exam Physical Exam: On exam she has good strength testing of her extremities. She has excellent cervical range of motion. Results & Data Vital Signs (Past 12 Hours) Vital Signs Temp Pulse Pulse Resp BP Pulse Ox O2 Del Method 01/22/24 07:39 36.7 C 64 16 113/64 99 Room Air 01/22/24 07:09 56 L 01/22/24 05:35 36.5 C 67 15 128/74 98 Room Air 01/22/24 00:00 47 L 01/21/24 23:25 36.7 C 52 L 19 128/75 96 Room Air
--- NOTE | 2024-01-22 11:23 | CT Scan Report ---
CT cervical spine wo con CLINICAL HISTORY: cervical spurs TECHNIQUE: Multidetector row helical CT of the cervical spine was performed without administration of intravenous contrast. Coronal and sagittal reformations were obtained. Automated dose lowering techn iques and/or adjustment according to patient size were utilized for this exam. Comparison: None available at the time of this dictation. FINDINGS: No acute fractures or subluxations are identified. Degenerative changes are seen in the visualized sp ine. The alignment is normal. Soft tissues are unremarkable. IMPRESSION: Degenerative changes without evidence of acute bony injury. ACT 112: Negative or not required by law. Electronically signed by: Fidel Vilchis M.D. 01/22/2024 11:21 AM
--- NOTE | 2024-01-22 16:56 | Discharge Summary ---
Date of Service January 22, 2024 Admission HPI Per Admitting Provider The patient is a 73-year-old female with a past medical history including ulcerative colitis, left knee DJD and renal insufficiency, with elevated troponin and BNP, worsening lower extremity edema and weeping, with persistent symptoms of abdominal discomfort associated with chronic ulcerative colitis. She presents to the emergency department for reassessment this evening. She did receive Solu-Medrol 125 mg IV from the ED 2 nights ago, and reports some improvement in symptoms, in conjunction with the prednisone 40 mg orally she is taking at this time. However, she continues to have persistent and worsening lower extremity edema and weeping Admission Exam Per Admitting Provider Physical Exam: The patient is awake, alert and oriented 3, well developed and well nourished, normocephalic and atraumatic, lying in bed and in no acute distress. HEENT--PERRL, EOMI, mucous membranes and oropharynx normal Neck--supple. No JVD. No bruits. Thyroid normal, trachea midline, no adenopathy. Heart--normal S1 and S2. No murmurs, rubs or gallops. Lungs--clear bilaterally, no respiratory distress, no accessory muscle use. Abdomen--normal bowel sounds and soft. Nontender. Nondistended Extremities--2+ bilateral pretibial pitting edema, some vacuolization, mild erythema anterior tibial surface and nodule of right leg Dermatologic--normal skin turgor, normal color, no abnormal lymph nodes, no rash. Neurologic--cranial nerves II through XII grossly intact. Rheumatologic--normal range of motion. Psychiatric--normal affect. Principal Diagnosis cervical spondylosis-caused dysphagia Discharge Exam Constitutional WD/WN, vitals as above Respiratory normal respiratory effort, lungs clear to auscultation Cardiovascular RRR, no murmur, no edema Extremities: + pedal edema Skin + skin tightening Psychiatric A+Ox3, euthymic affect Lymphatic + lymphedema (of the lower extremities) Discharge Data Allergies Allergy/AdvReac Type Severity Reaction Status Date / Time amoxicillin AdvReac Intermediate BILATERAL Verified 01/17/24 21:53 LEG SWELLING & ITCHINESS codeine AdvReac Intermediate chest pain Verified 01/17/24 21:53 Consultations 01/19/24 23:10 ED Decision to Admit Stat 01/21/24 13:12 Consult Orthopedic Spine Surgery Routine Ordered Studies 01/21/24 10:00 FL barium swallow Routine 01/21/24 10:30 FL video swallow Routine 01/22/24 10:31 CT cervical spine wo con Urgent Hospital Course (1) Dysphagia: (2) Elevated brain natriuretic peptide (BNP) level: (3) Elevated troponin: (4) Low serum albumin: (5) Ulcerative colitis, chronic: (6) Renal insufficiency: (7) Bilateral lower extremity edema: (8) Cellulitis of right lower extremity from knee to ankle: (9) Hypokalemia: Plan 1) Unspecified Colitis: Primarily noted to be active left side and sigmoid colon on CT scan abdomen and pelvis on 01/16 Colon biopsy during colonoscopy from 01/06/2024 with 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 medication related vs. idiopathic inflammatory bowel disease - Continue methylprednisolone, 40 mg, PO, daily as outpatient - Contact PCP and ask for oral solution of mesalamine to treat UC (since pt unable to tolerate mesalamine pills) 2) Bilateral lower extremity edema Highly suggestive of venous stasis vs lymphedema, most likely lymphedema - no fever, no white count elevation, non-tender to palpation - patient should follow up with PCP as outpt to get fitted for compression stockings and start process to get SCD's to help treat her lymphedema 3) Dysphagia, Failure to thrive/Protein calorie malnutrition, Generalized weakness: Patient struggles to swallow pills/food as it feels like things are getting stuck - difficulty has manifested as a 70 lb weight loss EGD biopsies on 01/06/2024 were negative Barium swallow/VFSS significant for cervical spine osteophyte growth noted to impeded swallowing - Speech therapy following, appreciate recs - Ortho spine consulted, Dr. Curiel agreeable to meeting with patient 01/21, will F/U w/ patient in outpt setting in 2 weeks Pantoprazole 40 mg IV daily Dietary consulted, PT/OT consulted - patient advised to eat at least 1500 calories/day (use Ensure High Calorie, Ensure Protein Boost and/or equivalents) - eat soft solid foods as tolerated and drink rest of calories - patient needs to get her albumin back WNL to help prevent further leg edema - recommend patient to supplement w/ a vitamin powder as outpt to prevent other vitamin deficiencies 4) Anemia: Hgb, 8.7 <-- 11.3 (at time of admission) - acute change w/in hospital due to hemodilution vs. bleed - Ferritin, B12, folate all WNL - recommend patient to supplement w/ a vitamin powder as outpt to prevent other vitamin deficiencies 5) Renal insufficiency #resolved Creatinine, 0.75 <-- 1.37 (on admission) Total Time Total Time Spent Total Time Spent (In Minutes): see attending attestation Discharge Plan Discharge Items Patient Disposition: Home - Self-Care Reason For Visit: COLITIS,UC FLARE,ELEVATED TROPONIN,RLE CELLULITIS, Discharge Diagnosis: bilateral LE edema Activity: Resume your previous activity Non-emergency contact: Primary Care Provider and Signal Apprentice Call non-emergency contact if: you have any medication questions and your symptoms worsen Follow-up/Referrals: Prachi Bryant DO [Primary Care Provider] - Diet: Heart Healthy Addtl Attending Provider Instructions: You were admitted to the hospital for lower extremity edema coupled with skin lesions along, colitis, and dysphagia. You were treated with methylprednisolone, 40 mg, IV, daily. A discharge summary will be sent to your primary care physician to ensure continuity of care. Please bring this discharge summary with you to your next office appointment so that your provider can review it at that time. Follow-up appointments: We have requested a follow-up appointment with your primary care physician within one week of discharge. Please call their office if you do not hear from them. We have requested a follow-up appointment with wound care within a few weeks of discharge. Please call their office if you do not hear from them. Keep all your follow-up appointments as already scheduled. If you cannot make an appointment, notify your provider. Medications: Your medication list has been reviewed and reconciled upon discharge to ensure accuracy and continuity of care. An updated list of all your medications is included with your hospital discharge paperwork. Please review this list closely, and make note of any changes. Take your medications as instructed; do not skip a dose of your medicines. Make sure all of your doctors know every medicine you are taking (including [id number] medicines, vitamins, and supplements). Call your primary care provider before taking any new medicines (including [id number] medicines, vitamins, and supplements), because some of these may interact with your current medications, or may make your symptoms worse. Tell your primary care provider if you cannot afford your medications. CONTACT YOUR PRIMARY CARE PROVIDER if you experience any of the following: worsening lower extremity edema, increased skin infections of lower extremities continued weight loss despite adequate nutrition, weakness, Difficulty following your treatment plan, or difficulty taking medications CALL 911 OR GO TO THE EMERGENCY DEPARTMENT if you experience any of the following: Sudden, severe abdominal pain or nausea/vomiting Severe chest pain, or chest pain that radiates (moves) to your jaw or arm Sudden, severe shortness of breath or difficulty breathing Thank you for allowing us to participate in your care. Pending Studies at Discharge: No Stand-Alone Forms: [email or web address], Smoking Cessation Medications and DC Order Prescriptions: Continued prednisone 10 mg tablet 40 mg PO DAILY Rx Instructions: STARTED 01/14/24 FOR 7 WEEKS--TAKE DIRECTED. Discharge Orders: Discharge Order (Routine); Ordered 01/22/24 Ordered By: Dawson De La Vega Admission Data Admit Date/Time: 01/20/24 01:33 Attending Provider: Vamshi De Anda Admit Provider: Hernesto Huerta Primary Care Provider: Prachi Bryant Other Providers: Hernesto Huerta; Aneesh Curiel Other Interventions: Discharge Summary Assessment (RN) Last Done: 01/22/24 17:11 Supervising Physician Co-Signing Physician Notes Patient seen and examined, chart reviewed, case discussed with Dr. De La Vega and I agree with the assessment and plan as above except as otherwise noted above. Seen at the bedside. Doing well prior to discharge. Will followup outpatient with Ortho Spine for potential surgical intervention of dysphagia 2/2 cervical osteophytes. Dietary modification as noted above, and patient has a referral placed to nutrition as outpatient. Will maximize nutrition with boost/ensure. Aware of risks of aspiration, and measures to minimize PNA risk. CTAB. Will continue her steroid taper for IBD as previously scheduled. Continues to have lymphedema --> lymphedema tx including elevation, compression/TEDs/Elevation and may followup at lymphedema clinic. No evidence of hypoxia/CHF. Agree w/ above. Time spend day of discharge including direct care, documentation, review of labs/images, and coordination of care ~40 minutes.
--- NOTE | 2024-01-22 18:13 | Billing Data ---
Date of Service January 22, 2024 Coding Level of Care Code 12856 INP/OBS DISCH >30 MIN
== END 2024-01-22 19:45 | disposition home or self-care (01) | DRG 391 ==
LOC: ED 21:28 → SUATTDRO 01-20 01:33 → EDINP 01-20 01:33 → 2W 01-20 07:26